=== PATIENT | male | born 1955 | race Caucasian/White ===

== ENCOUNTER 2016-11-22 07:24 | Emergency (ER) | payer OTHER ==
[2016-11-22 07:41] VITALS: BP 145/79
[2016-11-22] MEDS ORDERED: predniSONE TAB* 20 MG PO ONE (09:08)
[2016-11-22] MEDS ORDERED: Cephalexin CAP* 500 MG PO ONE (09:08)
[2016-11-22] MEDS ORDERED: Famotidine TAB* 20 MG PO ONE (09:09)
--- NOTE | 2016-11-22 10:18 | UC ---
Vanesa Duffy Alfonso, scribed for Amy Augustin MD on 11/22/16 at 0820 . General HPI - HPI Summary HPI Summary: This patient is a 61 year old M presenting to [facility] with a chief complaint of a possible insect bite at the right inner thigh which was noticed at 1730 last night. He states something bit me and I ripped off my pants from the pain and the redness is now bigger than my hand. The patient rates the pain 5/10 in severity. Symptoms aggravated and alleviated by nothing. Patient reports right thigh swelling, right thigh erythema, right elbow gout, and right foot gout. Patient denies urinary symptoms, CP, SOB, and throat tightness. PMHx of CAD and gout. Patients medications reviewed this visit. High blood pressure noted. NKDA. - History of Current Complaint Chief Complaint: UCGeneralIllness Stated Complaint: BUG BITE Hx Obtained From: Patient Onset/Duration: Sudden Onset, Lasting Hours - 1730 last night, Still Present Timing: Constant Onset Severity: Moderate Current Severity: Moderate Pain Intensity: 5 - /10 Pain Location at: right inner thigh, right elbow, right foot Pain Radiates to: no Character: sharp, aching Aggravating: Nothing. Alleviating: Nothing. Associated Signs & Symptoms: Positive: Other - Patient reports right thigh swelling, right thigh erythema, right elbow gout, and right foot gout. Patient denies urinary symptoms, CP, SOB, and throat tightness.. Negative: Chest Pain, Fever, SOB, Wheezing - Allergy/Home Medications Allergies/Adverse Reactions: Allergies Allergy/AdvReac Type Severity Reaction Status Date / Time No Known Allergies Allergy Verified 11/22/16 07:36 PMH/Surg Hx/FS Hx/Imm Hx Other Endocrine History: Gout Cardiovascular History: Cardiac Disease, Hypertension - Surgical History Surgical History: Yes Surgery Procedure, Year, and Place: appendectomy many years ago. 2 hernia repairs many years ago - Family History Known Family History: Positive: Cardiac Disease, Other - Cancers - Social History Occupation: Employed Full-time Lives: With Family Alcohol Use: Weekly Substance Use Type: None Smoking Status (MU): Former Smoker Type: Cigars Household Exposure Type: Cigars Review of Systems Constitutional: Negative Skin: Other - Positive possible insect bite at the right inner thigh, right thigh erythema ENT: Other - Negative throat tightness Respiratory: Other - Negative SOB Cardiovascular: Other - Negative CP Genitourinary: Negative Musculoskeletal: Other: - Positive right thigh swelling, right elbow gout, and right foot gout. All Other Systems Reviewed And Are Negative: Yes Physical Exam Triage Information Reviewed: Yes Appearance: Well-Appearing, Well-Nourished, Pain Distress Vital Signs: Initial Vital Signs Temp 98.5 F 11/22/16 07:37 Pulse 82 11/22/16 07:37 Resp 16 11/22/16 07:37 BP 145/79 11/22/16 07:37 Pulse Ox 100 11/22/16 07:37 Vital Signs Reviewed: Yes Eyes: Positive: Conjunctiva Clear ENT: Positive: Normal ENT inspection. Negative: Muffled/hoarse voice Neck: Positive: Supple Respiratory: Positive: Lungs clear, Normal breath sounds, No respiratory distress, No accessory muscle use Cardiovascular: Positive: RRR, No Murmur, Pulses Normal, Brisk Capillary Refill Abdomen Description: Positive: Nontender, Soft Bowel Sounds: Positive: Present Musculoskeletal: Positive: Strength Intact, ROM Intact, Other: - Right olecranon bursitis with swelling, no redness, +pain on palpation, full ROM. + redness, tenderness dorsum right foot (see skin) Neurological: Positive: Alert, Muscle Tone Normal Psychological Exam: Normal Skin: Positive: Other - Right inner thigh with 18 cm x 28 cm redness and swelling at right inner thigh but genitals are not affected. 25 cm x 14 cm of diffuse redness and raised red edges at umbilical area (chronic, being followed by dermatology). Dorsum of foot 8 cm x 7 cm area of erythema centered over the first and second metatarsals. Course/Dx - Course Course Of Treatment: This patient is a 61 year old M presenting to [facility] with a chief complaint of a possible insect bite at the right inner thigh which was noticed at 1730 last night. He states something bit me and I ripped off my pants from the pain and the redness is now bigger than my hand. Patient reports right thigh swelling, right thigh erythema, right elbow gout, and right foot gout. Patient denies urinary symptoms, CP, SOB, and throat tightness. PMHx of CAD and gout. Patients medications reviewed this visit. High blood pressure noted. NKDA. Patient will be discharged with advice to have definite follow up from PCP and Dr. Quinteros (orthopedics). He was given prescriptions at Keflex, Pepcid, and prednisone to treat acute allergic reaction with cellulitis in his right thigh. Prednisone will also help with gout right foot and acute olecranon bursitis. Pt wrapped with jessica to right elbow and advised to seek orthopedic attention if redness of elbow, or increased pain and swelling. Patient is agreeable with this plan. - Differential Dx - Multi-Symptom Provider Diagnoses: acute allergic reaction to insect bite with acute cellulitis right upper thigh. right olecranon bursitis, acute. right foot gout , acute. HTN in poor control Discharge - Discharge Plan Condition: Stable Disposition: HOME Prescriptions: Cephalexin CAP* [Keflex 500 CAP*] 500 mg PO QID #40 cap Famotidine TAB 40 MG(NF) [Pepcid TAB 40 MG(NF)] 40 mg PO DAILY #5 tab predniSONE TAB* [Deltasone TAB*] 40 mg PO DAILY #10 tab Patient Education Materials: Cellulitis (ED), Gout (ED), Cephalexin (By mouth) , Elbow Bursitis (ED), General Allergic Reaction (ED) Forms: *Work Release Referrals: Leticia Presley MD [Primary Care Provider] - 3 Days Mal Quinteros MD [Medical Doctor] - 3 Days Additional Instructions: Please take Benadryl 50 mg (2 tablets) 4 times a day for 48 hours and then as needed, cephalexin (Keflex) 4 times a day for 10 days, pepcid and prednisone once a day for 5 days more. Start the prednisone and pepcid (famotidine) tomorrow because you were given your first doses in urgent care. Take 3 more doses of cephalexin (Keflex) today as you were given your first dose in urgent care. Take benadryl 50mg when you get home and a total of 4 times today and tomorrow. Call for orthopedic and primary care appointments today to be seen in the next 3-5 days for follow up, definite. SEE YOUR PRIMARY CARE PROVIDER FOR HIGH BLOOD PRESSURED NOTED TODAY AT 145/79. GO TO THE ER IF YOU HAVE NEW OR WORSENING SYMPTOMS. The documentation as recorded by the Vanesa florez Alfonso accurately reflects the service I personally performed and the decisions made by , Amy Augustin MD.
== END 2016-11-22 09:20 | disposition home or self-care (01) ==
LOC: UCEAST 07:24
DX: S70.361A Insect bite (nonvenomous), right thigh, initial encounter (principal); W57.XXXA Bitten or stung by nonvenomous insect and other nonvenomous arthropods, initial encounter; I25.10 Atherosclerotic heart disease of native coronary artery without angina pectoris; L03.115 Cellulitis of right lower limb; M10.9 Gout, unspecified; M70.21 Olecranon bursitis, right elbow; Z87.891 Personal history of nicotine dependence
CPT/HCPCS: 99213; A9270-GY; G0463; J7512

== ENCOUNTER 2017-06-04 09:24 | Emergency (ER) | payer OTHER ==
[2017-06-04 10:07] VITALS: BP 166/95
--- NOTE | 2017-06-04 10:29 | UC ---
Skin Complaint HPI - HPI Summary HPI Summary: Pt presents with rash to right ankle that began about 2 weeks ago. He tells me the rash began as a small red area on the anterolateral aspect of the right ankle. He did not think much of it, but soon began to see it spreading. He applied an antibiotic ointment to the area that he had at home from his director of cardiac rehabilitation and the area seemed to heal, but was still red. No itch. Over the last 4-5 days he has noticed 2-3 red dot on his right leg and right lower/ middle back. He tried to get an appointment with his director of cardiac rehabilitation today, but they were not in the office. He mentions that [place] and has been exposed to ticks in the past. Denies fever, chills, SOB, chest pain, headache, dizziness, abdominal pain, n/v/d/c. - History of Current Complaint Chief Complaint: UCSkin Time Seen by Provider: 06/04/17 10:28 Stated Complaint: RASH Hx Obtained From: Patient Onset/Duration: Gradual Onset Timing: Constant Current Severity: None Pain Intensity: 1 - Allergy/Home Medications Allergies/Adverse Reactions: Allergies Allergy/AdvReac Type Severity Reaction Status Date / Time No Known Allergies Allergy Verified 06/04/17 09:55 Home Medications: Home Medications Metoprolol Succinate [Toprol Xl] 25 mg PO DAILY 06/04/17 [History Confirmed ] Mupirocin 2% OINT* [Bactroban 2 % Oint*] 1 applic TOPICAL BID PRN 06/04/17 [ History Confirmed 06/04/17] Review of Systems Constitutional: Negative Skin: Rash Respiratory: Negative Cardiovascular: Negative Gastrointestinal: Negative Musculoskeletal: Negative Neurological: Negative Psychological: Negative All Other Systems Reviewed And Are Negative: Yes PMH/Surg Hx/FS Hx/Imm Hx Previously Healthy: Yes Cardiovascular History: Hypertension GI/ History: Gastroesophageal Reflux - Surgical History Surgical History: Yes Surgery Procedure, Year, and Place: appendectomy many years ago. 2 hernia repairs many years ago. Left Foot surgery - Family History Known Family History: Positive: Cardiac Disease, Other - Cancers - Social History Lives: With Family Alcohol Use: Occasionally Substance Use Type: None Smoking Status (MU): Current Some Day Smoker Type: Cigars Household Exposure Type: Cigars Physical Exam Triage Information Reviewed: Yes Appearance: Well-Appearing, No Pain Distress, Well-Nourished Vital Signs: Initial Vital Signs Temp 98.4 F 06/04/17 10:02 Pulse 81 06/04/17 10:02 Resp 18 06/04/17 10:02 BP 166/95 06/04/17 10:02 Pulse Ox 100 06/04/17 10:02 Vital Signs Reviewed: Yes Neck: Positive: Supple, Nontender, No Lymphadenopathy Respiratory: Positive: Lungs clear, Normal breath sounds, No respiratory distress, No accessory muscle use Cardiovascular: Positive: RRR, No Murmur, Pulses Normal Neurological: Positive: Alert Psychological: Positive: Age Appropriate Behavior Skin: Positive: Other - Right ankle: on the anterolateral aspect there is a 3.0cm linear plaque with mildly erythematous boarders. On the right leg there are two 2mm scaley papules. These same scaley papules are seen diffuse on the right lower and mid back. No warmth, drainage, bleeding, ecchymosis, or ulcerations. Course/Dx - Course Course Of Treatment: The rash seems most consistent with atopic dermatitis vs psoriasis. I will test him for lyme disease given his exposure and try him with a steroid cream. F/u with director of cardiac rehabilitation within 1 week. - Diagnoses Provider Diagnoses: Atopic dermatitis Discharge - Discharge Plan Condition: Stable Disposition: HOME Prescriptions: Betamethasone Valerate 0.1 % TOPICAL BID #1 tube predniSONE TAB* [Deltasone TAB*] 50 mg PO DAILY #5 tab Patient Education Materials: Contact Dermatitis (ED) Referrals: Leticia Presley MD [Primary Care Provider] - Additional Instructions: If you develop a fever, shortness of breath, chest pain, new or worsening symptoms - please call your PCP or go to the ED. Your blood pressure was high at todays visit. Please see your primary provider within 4 weeks for recheck and re-evaluation. 1) Please schedule a follow up appointment with your director of cardiac rehabilitation within 1 week for further evaluation of your rash.
== END 2017-06-04 10:45 | disposition home or self-care (01) ==
LOC: UCEAST 09:24
DX: L20.9 Atopic dermatitis, unspecified (principal); I10 Essential (primary) hypertension; K21.9 Gastro-esophageal reflux disease without esophagitis; F17.290 Nicotine dependence, other tobacco product, uncomplicated
CPT/HCPCS: 86618; 99212; G0463

== ENCOUNTER 2017-10-30 14:25 | Emergency (ER) | payer OTHER ==
[2017-10-30 14:55] VITALS: BP 141/91
--- NOTE | 2017-10-30 15:07 | UC ---
Skin Complaint HPI - HPI Summary HPI Summary: This is vikki Ash documenting for attending Jay Pereyra MD. This patient is a 62 year old M presenting to [facility] with a chief complaint of possible insect bite to R ankle that began this morning. The patient rates the pain 2/10 in severity. Symptoms aggravated by nothing. Symptoms alleviated by nothing. Patient reports painful, large red circular area of erythema. Patient denies blistering. Pt reports living in an area with ticks, but denies tick removal. He denies any recent trauma to the area. Allergies reviewed. Medications reviewed. - History of Current Complaint Chief Complaint: UCSkin Time Seen by Provider: 10/30/17 14:58 Stated Complaint: SKIN ISSUE Hx Obtained From: Patient Onset/Duration: Sudden Onset, Lasting Hours, Still Present Skin Exposure Onset/Duration: Hours Ago Timing: Constant Onset Severity: Mild Current Severity: Mild Pain Intensity: 2 Pain Scale Used: 0-10 Numeric Location: Other - R ankle Character: Redness Aggravating Factor(s): Nothing Alleviating Factor(s): Nothing - Allergy/Home Medications Allergies/Adverse Reactions: Allergies Allergy/AdvReac Type Severity Reaction Status Date / Time No Known Allergies Allergy Verified 10/30/17 14:54 Review of Systems Constitutional: Other - Negative fever Skin: Rash, Other - Positive possible insect bite to R ankle All Other Systems Reviewed And Are Negative: Yes PMH/Surg Hx/FS Hx/Imm Hx Previously Healthy: No Endocrine History: Other Other Endocrine History: Negative diabetes Cardiovascular History: Hypertension - Surgical History Surgical History: Yes Surgery Procedure, Year, and Place: appendectomy many years ago. 2 hernia repairs many years ago. Left Foot surgery - Family History Known Family History: Positive: Cardiac Disease, Other - Cancers - Social History Occupation: Employed Full-time Lives: With Family Alcohol Use: Weekly Substance Use Type: None Smoking Status (MU): Former Smoker Type: Cigars When Did the Patient Quit Smoking/Using Tobacco: 20+ Household Exposure Type: Cigars Physical Exam - Summary Physical Exam Summary: General: well-appearing, no pain distress Skin: warm, color reflects adequate perfusion, dry. 5 cm diameter erythematous, slightly swollen area, lateral aspect above the ankle, no drainage, tender to palpation Head: normal Eyes: EOMI, BURAK ENT: normal Neck: supple, nontender Respiratory: CTA, breath sounds present Cardiovascular: RRR Abdomen: soft, nontender Bowel: present Musculoskeletal: normal, strength/ROM intact Neurological: sensory/motor intact, A&O x3 Psychological: affect/mood appropriate Triage Information Reviewed: Yes Vital Signs: Initial Vital Signs Temp 97.9 F 10/30/17 14:50 Pulse 77 10/30/17 14:50 Resp 18 10/30/17 14:50 BP 141/91 10/30/17 14:50 Pulse Ox 99 10/30/17 14:50 Vital Signs Reviewed: Yes Course/Dx - Course Course Of Treatment: BP noted and advised to follow up with PCP - Diagnoses Provider Diagnoses: RIGHT LEG CELLULITIS. HTN Discharge - Sign-Out/Discharge Documenting (check all that apply): Patient Departure - Discharge Plan Condition: Stable Disposition: HOME Prescriptions: Cephalexin CAP* [Keflex CAP*] 500 mg PO QID #40 cap Patient Education Materials: Cellulitis (ED) Referrals: Leticia Presley MD [Primary Care Provider] - Additional Instructions: FOLLOW UP WITH YOUR DOCTOR. GET RECHECKED FOR ANY WORSENING OF YOUR CONDITION; SPREAD OF INFECTION, FEVER, YOU FEEL ILL OR QUESTIONS OR CONCERNS. - Billing Disposition and Condition Condition: STABLE Disposition: Home
== END 2017-10-30 15:23 | disposition home or self-care (01) ==
LOC: UCEAST 14:25
DX: L03.115 Cellulitis of right lower limb (principal); I10 Essential (primary) hypertension; Z87.891 Personal history of nicotine dependence
CPT/HCPCS: 99212; G0463

== ENCOUNTER 2019-05-16 09:36 | Emergency (ER) | payer OTHER ==
--- NOTE | 2019-05-16 10:49 | ED ---
Skin Complaint - HPI Summary HPI Summary: This patient is a 63 year old male presenting to [facility] with a chief complaint of rash since this morning. He states he went to his PCP for an ear infection since 2 days ago, was prescribed amoxicillin for treatment started 2 days ago, and then awoke this morning with an erythemetous rash on his face. He denies SOB , n/v. He reports no Hx of asthma. Reports Hx of HTN. He did not take anything for the rash today and he has no known medication allergies. - History of Current Complaint Chief Complaint: EDAllergicReaction Time Seen by Provider: 05/16/19 10:43 Stated Complaint: POSS ALLERGIC REACTION PER PT Hx Obtained From: Patient Onset/Duration: Started Hours Ago Pain Intensity: 0 Pain Scale Used: 0-10 Numeric Skin Location: Face Character: Redness - Allergy/Home Medications Allergies/Adverse Reactions: Allergies Allergy/AdvReac Type Severity Reaction Status Date / Time No Known Allergies Allergy Verified 05/16/19 09:40 PMH/Surg Hx/FS Hx/Imm Hx Endocrine/Hematology History: Denies: Hx Diabetes, Hx Thyroid Disease Cardiovascular History: Reports: Hx Hypertension Denies: Hx Pacemaker/ICD Respiratory History: Denies: Hx Asthma, Hx Chronic Obstructive Pulmonary Disease (COPD) GI History: Denies: Hx Ulcer Musculoskeletal History: Reports: Hx Gout Sensory History: Denies: Hx Hearing Aid Psychiatric History: Denies: Hx Panic Disorder - Surgical History Surgery Procedure, Year, and Place: appendectomy many years ago. 2 hernia repairs many years ago. Left Foot surgery Infectious Disease History: No Infectious Disease History: Denies: Hx Clostridium Difficile, Hx Hepatitis, Hx Human Immunodeficiency Virus (HIV), Hx of Known/Suspected MRSA, Hx Shingles, Hx Tuberculosis, Hx Known/ Suspected VRE, Hx Known/Suspected VRSA, History Other Infectious Disease, Traveled Outside the [place] in Last 30 Days - Family History Known Family History: Positive: Cardiac Disease, Other - Cancers - Social History Alcohol Use: Weekly Hx Substance Use: No Substance Use Type: Reports: None Hx Tobacco Use: Yes Smoking Status (MU): Former Smoker Type: Cigars Review of Systems Negative: Shortness Of Breath Negative: Vomiting, Nausea Positive: Rash All Other Systems Reviewed And Are Negative: Yes Physical Exam - Summary Physical Exam Summary: Constitutional: Well-developed, Well-nourished, Alert. (-) Distressed Skin: Warm, Dry. Facial flushing. No angioedema. HENT: Normocephalic; Atraumatic Eyes: Conjunctiva normal Neck: Musculoskeletal ROM normal neck. (-) JVD, (-) Stridor, (-) Tracheal deviation Cardio: Rhythm regular, rate normal, Heart sounds normal; Intact distal pulses; Radial pulses are 2+ and symmetric. (-) Murmur Pulmonary/Chest wall: Effort normal. (-) Respiratory distress, (-) Rales. No stridor or wheezing. Abd: Soft, (-) tenderness, (-) Distension, (-) Guarding, (-) Rebound Musculoskeletal: (-) Edema Lymph: (-) Cervical adenopathy Neuro: Alert, Oriented x3 Psych: Mood and affect Normal Triage Information Reviewed: Yes Vital Signs On Initial Exam: Initial Vitals Temp Pulse Resp BP Pulse Ox 97.3 F 84 15 167/98 98 05/16/19 09:37 05/16/19 09:37 05/16/19 09:37 05/16/19 09:37 05/16/19 09:37 Vital Signs Reviewed: Yes Procedures - Sedation Patient Received Moderate/Deep Sedation with Procedure: No Diagnostics - Vital Signs Vital Signs Temp Pulse Resp BP Pulse Ox 05/16/19 09:37 97.3 F 84 15 167/98 98 - Laboratory Lab Statement: Any lab studies that have been ordered have been reviewed, and results considered in the medical decision making process. Re-Evaluation - Re-Evaluation First Eval Re-Evaluation Time: 11:38 Change: Improved Comment: Patient feeling better, less flushed, ready to be discharged home. Course/Dx - Course Course Of Treatment: This patient is a 63 year old male presenting to [facility] with a chief complaint of rash since this morning. Physical exam was remarkable for facial flushing. Patient administered solumedrol and benadryl. Patient felt better after medication. Plan for discharge was discussed with the patient and he was agreeable with this plan. - Diagnoses Provider Diagnoses: Allergic reaction to drug Discharge ED - Sign-Out/Discharge Documenting (check all that apply): Patient Departure - Discharge - Discharge Plan Condition: Stable Disposition: HOME Prescriptions: predniSONE [Prednisone 20 MG TAB] 40 mg PO DAILY 4 Days #8 tablet Patient Education Materials: Antibiotic Medication Allergy (ED) Referrals: Leticia Presley MD [Primary Care Provider] - Additional Instructions: Return to ED with new or worsening symptoms. - Billing Disposition and Condition Condition: STABLE Disposition: Home - Attestation Statements Document Initiated by Arthur: Yes Documenting Scribe: Mal Stringer Provider For Whom Arthur is Documenting (Include Credential): Chad Loya DO Scribe Attestation: IMal, scribed for Chad Loya DO on 05/16/19 at 1141. Scribe Documentation Reviewed: Yes Provider Attestation: The documentation as recorded by the Mal florez accurately reflects the service I personally performed and the decisions made by , Chad Loya DO Status of Scribe Document: Viewed
[2019-05-16] MEDS ORDERED: Famotidine IV* 10 MG/ML 2 ML (20 mg) IV SLOW PU ONE (10:51)
[2019-05-16] MEDS ORDERED: diPHENhydraMINE IV* 50 MG/ML 1 ml VIAL (BENADRYL) IV ONE (10:51)
[2019-05-16] MEDS ORDERED: methylPREDNISolone 125 MG* 2 ML VIAL IV ONE (10:51)
[2019-05-16] MEDS ORDERED: NS 0.9% 1000 ML** 1,000 ML IV ONE (10:51)
[2019-05-16 11:52] VITALS: BP 146/88
== END 2019-05-16 11:51 | disposition home or self-care (01) ==
LOC: ED 09:36
DX: L27.1 Localized skin eruption due to drugs and medicaments taken internally (principal); T36.0X5A Adverse effect of penicillins, initial encounter; Y92.9 Unspecified place or not applicable; I10 Essential (primary) hypertension; Z79.899 Other long term (current) drug therapy; Z87.891 Personal history of nicotine dependence
CPT/HCPCS: 96361; 96374; 96375; 99282; J1200; J2930